=== PATIENT | male | born 1970 | race Caucasian/White ===

== ENCOUNTER 2020-03-03 11:50 | Emergency (ER) | payer MEDICAID ==
[~2020-03-03] VITALS: Ht 193 cm; Wt 94.5 kg
[2020-03-03 12:00] VITALS: BP 135/86
[2020-03-03] MEDS ORDERED: METH-38 PO (12:06)
--- NOTE | 2020-03-03 12:06 | PHYS DOC ---
General Adult EDM: Chief Complaint: BACK PAIN OR INJURY HPI: HPI: Patient is a 49-year-old male with several very unfortunate medical issues presents today with back and neck pain. He states he had a seizure yesterday fell and hurt his back. He states today it hurts to bend over and to move his neck around. He has not had any radicular symptoms no lateralizing neurologic symptoms. He does not think he hit his head. He states he has addiction issues with opiates and does not want any opiates for pain. [] Review of Systems: Review of Systems: Constitutional: Denies fever or chills Eyes: Denies change in visual acuity HENT: Denies nasal congestion or sore throat Respiratory: Denies cough or shortness of breath Cardiovascular: Denies chest pain or edema GI: Denies abdominal pain, nausea, vomiting, bloody stools or diarrhea : Denies dysuria Musculoskeletal: Per HPI Integument: Denies rash Neurologic: Denies headache, focal weakness or sensory changes Endocrine: Denies polyuria or polydipsia Lymphatic: Denies swollen glands Psychiatric: Denies depression or anxiety Heart Score: Risk Factors: Risk Factors: DM, Current or recent (<one month) smoker, HTN, HLP, family history of CAD, obesity. Risk Scores: Score 0 - 3: 2.5% MACE over next 6 weeks - Discharge Home Score 4 - 6: 20.3% MACE over next 6 weeks - Admit for Clinical Observation Score 7 - 10: 72.7% MACE over next 6 weeks - Early Invasive Strategies Allergies: Allergies: Allergies Coded Allergies Type Severity Reaction Last Updated Verified cyclobenzaprine Allergy Unknown 03/03/20 Yes lorazepam Allergy Unknown 03/03/20 Yes siponimod Allergy Unknown 03/03/20 Yes Physical Exam: PE: Constitutional: Well developed, well nourished, mild distress, non-toxic appearance. [] HENT: Normocephalic, atraumatic, bilateral external ears normal, oropharynx moist, no oral exudates, nose normal. [] Eyes: PERRLA, EOMI, conjunctiva normal, no discharge. [] Neck: Normal active range of motion, no tenderness, supple, no stridor. [] . [] Skin: Warm, dry, no erythema, no rash. [] Back: Paraspinal muscle spasm no midline vertebral tenderness more pronounced in the lower cervical and upper thoracic area no step-off no pain with axial compression [] [] Neurologic: Alert and oriented X 3, normal motor function, normal sensory function, no focal deficits noted. [] Psychologic: Anxious [] Current Patient Data: Vital Signs: Vital Signs Date Time Temp Pulse Resp B/P (MAP) Pulse Ox O2 Delivery O2 Flow Rate FiO2 03/03/20 12:00 97.9 94 18 135/86 (102) 95 Room Air EKG: EKG: [] Radiology/Procedures: Radiology/Procedures: [] Course & Med Decision Making: Course & Med Decision Making Pertinent Labs and Imaging studies reviewed. (See chart for details) [] Dragon Disclaimer: Dragon Disclaimer: This electronic medical record was generated, in whole or in part, using a voice recognition dictation system. Departure Departure: Impression: Primary Impression: Acute neck sprain Qualified Codes: S13.9XXA - Sprain of joints and ligaments of unspecified parts of neck, initial encounter Disposition: HOME/RESIDENCE PRIOR TO ADM Condition: STABLE Referrals: DG BILLY MD (PCP) Patient Instructions: Soft Tissue Injury of the Neck Additional Instructions: Return to the emergency department with any new or concerning symptoms Scripts Methocarbamol (ROBAXIN-750) 750 Mg Tablet 1 TAB PO BID for back pain for 30 Days, #60 TAB 0 Refills Prov: CISCO HERNANDEZ DO 03/03/20 CISCO HERNANDEZ DO March 03, 2020 12:06
[2020-03-03] MEDS ORDERED: METHOCARBAMOL 500 MG TABLET PO ONE (12:15)
== END 2020-03-03 12:29 | disposition home or self-care (01) ==
LOC: ER 11:50
DX: S13.9XXA Sprain of joints and ligaments of unspecified parts of neck, initial encounter (principal); M54.6 Pain in thoracic spine; Z88.8 Allergy status to other drugs, medicaments and biological substances; W18.39XA Other fall on same level, initial encounter; Y93.89 Activity, other specified; Y92.89 Other specified places as the place of occurrence of the external cause; Y99.8 Other external cause status
CPT/HCPCS: 99284